=== PATIENT | female | born 1945 | race Caucasian/White ===

== ENCOUNTER → 2016-08-21 | Outpatient (CLI) | payer MEDICARE, OTHER ==
--- NOTE | 2016-08-21 14:13 | REPMRS ---
Patient History The patient states she had a clinical breast exam in 07/2016. Patient is postmenopausal, has history of cancer in the left breast at age 53, had previous chest radiation therapy at age 53, and had previous chemotherapy at age 53. Family history of breast cancer in maternal cousin at age 50 or over. Malignant excisional biopsy of the left breast, 1999. Chemotherapy, 1999. Radiation therapy of the left breast, 1999. Took hormonal contraceptives for 2 years. Took tamoxifen for 5 years. Digital Woman Screen Mammo: August 21, 2016 - Exam #: [id number] Bilateral CC and MLO view(s) were taken. Technologist: Lizz Awan, Technologist Prior study comparison: August 19, 2015, digital woman screen mammo performed at [facility]. August 17, 2014, digital woman screen mammo performed at [facility]. FINDINGS: There are scattered fibroglandular densities. There is no evidence of cancer on this mammogram. No significant changes when compared with prior studies. ASSESSMENT: BI-RADS/ACR category 2 mammogram. Benign finding(s). Recommendation Routine screening mammogram of both breasts in 1 year (for women over age 40). This mammogram was interpreted with the aid of an FDA-approved computer-aided dectection system. Electronically Signed By: Dean Swain MD 08/21/16 [id number]
== END ==
LOC: M WHC 13:17
PROVIDERS: ATTEND Nurse Practitioner Family
DX: Z12.31 Encounter for screening mammogram for malignant neoplasm of breast (principal); Z78.0 Asymptomatic menopausal state; Z85.3 Personal history of malignant neoplasm of breast; Z92.21 Personal history of antineoplastic chemotherapy; Z92.0 Personal history of contraception; Z92.3 Personal history of irradiation; Z80.3 Family history of malignant neoplasm of breast

== ENCOUNTER → 2018-08-23 | Outpatient (CLI) | payer MEDICARE, OTHER ==
[~2018-08-23] MED LIST: ALLO100T PO; ATOR40TA75 PO; CO Q200C10 PO; D-3-50003 PO; GEMF600T5 PO; LOSA100T5 PO; MAGN400C2 PO; PANT20TA2 PO
--- NOTE | 2018-08-23 11:02 | REPMRS ---
Patient History The patient states she had a clinical breast exam in 06/2018. Patient is postmenopausal, has history of cancer in the left breast at age 53, had previous chest radiation therapy at age 53, and had previous chemotherapy at age 53. Family history of breast cancer at age 50 or over in maternal cousin, breast cancer at age 50 in daughter. Malignant excisional biopsy of the left breast, 1999. Chemotherapy, 2000. Radiation therapy of the left breast, 1999. Took hormonal contraceptives for 2 years. Took tamoxifen for 5 years. Digital Woman Screen Mammo: August 23, 2018 - Exam #: [id number] Bilateral CC and MLO view(s) were taken. Technologist: Lizz Awan, Technologist Prior study comparison: August 22, 2017, digital woman screen mammo performed at [facility]. August 21, 2016, digital woman screen mammo performed at [facility]. August 19, 2015, digital woman screen mammo performed at [facility]. FINDINGS: There are scattered fibroglandular densities. There are stable post-treatment changes on the left. There are stable nodular opacities on the right which are felt to be benign. There has been no change in the appearance of the mammogram from the prior studies. There is a mild amount of scattered fibroglandular density which is fairly symmetric. There is no interval development of dominant mass, architectural distortion, or clustered microcalcification suggestive of malignancy. 3-D tomosynthesis shows no additional findings. Assessment: BI-RADS/ACR category 2 mammogram. Benign Findings. Recommendation Routine screening mammogram of both breasts in 1 year (for women over age 40). This mammogram was interpreted with the aid of an FDA-approved computer-aided dectection system. Electronically Signed By: Heath Bear MD 08/23/18 [id number]
== END ==
LOC: M WHC 09:06
PROVIDERS: ATTEND Nurse Practitioner Family
DX: Z12.31 Encounter for screening mammogram for malignant neoplasm of breast (principal)

== ENCOUNTER → 2019-11-20 | Outpatient (CLI) | payer MEDICARE, OTHER ==
[~2019-11-20] MED LIST changes: -PANT20TA2 PO; +PANT20TA6 PO
--- NOTE | 2019-11-20 17:06 | REPMRS ---
Patient History The patient states she had a clinical breast exam in July 2019.Family history of breast cancer at age 50 or over in maternal cousin, breast cancer at age 50 in daughter. Malignant excisional biopsy of the left breast, 1999. Chemotherapy, 1999. Radiation therapy of the left breast, 1999. Took hormonal contraceptives for 2 years. Took tamoxifen for 5 years. 3D TOMOSYNTHESIS WAS PERFORMED. VOLPARA DENSITY B. Digital Woman Screen Mammo: November 20, 2019 - Exam #: [id number] Bilateral CC and MLO view(s) were taken. Technologist: Magda Ramires, Technologist Prior study comparison: August 23, 2018, bilateral digital woman screen mammo performed at [facility]. August 22, 2017, digital woman screen mammo performed at [facility]. FINDINGS: There are scattered fibroglandular densities. There is a fairly symmetric fibroglandular pattern in both breasts. There has been no interval development of masses, areas of architectural distortion or clusters of microcalcifications typical of malignancy. Stable post surgical changes on the left. No significant changes when compared with prior studies. Assessment: BI-RADS/ACR category 2 mammogram. Benign Findings. Recommendation Routine screening mammogram of both breasts in 1 year (for women over age 40). This mammogram was interpreted with the aid of an FDA-approved computer-aided dectection system. Electronically Signed By: Dean Swain MD 11/20/19 [id number]
== END ==
LOC: M WHC 16:25
PROVIDERS: ATTEND Obstetrics & Gynecology
DX: Z12.31 Encounter for screening mammogram for malignant neoplasm of breast (principal); Z80.3 Family history of malignant neoplasm of breast; Z85.3 Personal history of malignant neoplasm of breast; Z92.21 Personal history of antineoplastic chemotherapy; Z92.3 Personal history of irradiation

== ENCOUNTER → 2020-11-22 | Outpatient (CLI) | payer MEDICARE, OTHER ==
--- NOTE | 2020-11-22 13:07 | REPMRS ---
Patient History The patient states she had a clinical breast exam in October 2020. Family history of breast cancer at age 50 or over in maternal cousin, breast cancer at age 50 in daughter. Malignant excisional biopsy of the left breast, 1999. Chemotherapy, 1999. Radiation therapy of the left breast, 1999. Took hormonal contraceptives for 2 years. Took tamoxifen for 5 years. Patient states no breast complaints today. Patient has signed MRS History Sheet. Digital Woman Screen Mammo: November 22, 2020 - Exam #: [id number] Bilateral CC and MLO view(s) were taken. Technologist: Brea Polanco, Technologist Prior study comparison: November 20, 2019, bilateral digital woman screen mammo performed at [facility]. August 23, 2018, bilateral digital woman screen mammo performed at [facility]. FINDINGS: There are scattered fibroglandular densities. Screening. This patient?s lifetime risk for the development of invasive breast cancer can?t be calculated due to her age (less than 20 or greater than 85 years) or a prior history of in situ or invasive breast cancer. Digital screening (2D) mammography was performed bilaterally. Additionally, breast tomosynthesis (3D mammography) was performed bilaterally in the CC and MLO projections. Today's exam was compared to the prior exam/exams. By history, the patient has no complaints of a palpable breast abnormality or other significant breast complaints. The patient is status post lumpectomy/chemo radiation therapy due to breast carcinoma. The breasts are unchanged in size and shape. There are no leticia-areas of internal architectural distortion. There are no leticia-soft tissue densities or areas of spiculation. There is unchanged post radiation skin thickening. Once again, stable benign appearing calcifications are seen. IMPRESSION: BI-RADS Category 2- Benign Findings. There is no evidence of malignant alteration of the breasts. Routine bilateral screening mammogram recommended at its regularly scheduled annual interval. The Volpara volumetric breast density category is B, there are scattered areas of fibroglandular densities. This mammogram was read with the assistance of [employer],an FDA approved computer aided detection system for mammography. Negative x-ray reports should not delay surgical consultation if a dominant or clinically suspicious mass is present. Not all breast cancers can be identified by mammography. Therefore, we recommend that you continue to perform regular breast self-examination and physical examination and then promptly contact your physician of any concerns or changes. Adenosis and dense breasts may obscure an underlying neoplasm. Assessment: BI-RADS/ACR category 2 mammogram. Benign Findings. Recommendation Routine screening mammogram of both breasts in 1 year. Electronically Signed By: Tu Duarte DO 11/22/20 [id number]
== END ==
LOC: M WHC 11:24
PROVIDERS: ATTEND Obstetrics & Gynecology
DX: Z12.31 Encounter for screening mammogram for malignant neoplasm of breast (principal)

== ENCOUNTER → 2021-11-29 | Outpatient (CLI) | payer MEDICARE, OTHER | LOC: M WHC 12:02 | PROVIDERS: ATTEND Obstetrics & Gynecology | DX: Z12.31 Encounter for screening mammogram for malignant neoplasm of breast (principal); Z85.3 Personal history of malignant neoplasm of breast ==

== ENCOUNTER 2022-08-11 14:45 | Inpatient (IN) | payer MEDICARE, OTHER ==
[~2022-08-11] VITALS: Ht 177.8 cm; Wt 87.3 kg
[2022-08-11 15:30] LABS: BASO # 0.1 10^3/uL (0.0-0.2); BASO % 0.3 % (0.0-1.0); EOS # 0.1 10^3/uL (0.0-0.5); EOS % 0.5 % (0.0-3.0); HEMATOCRIT 38.3 % (36.0-47.0); HEMOGLOBIN 12.7 g/dl (12.0-15.5); LYMPH # 1.9 10^3/uL (1.5-5.0); LYMPH % 12.7 % (24.0-44.0); MEAN CORPUSCULAR HEMOGLOBIN 29.1 pg (27.0-33.0); MEAN CORPUSCULAR HGB CONC 33.2 g/dl (32.0-36.5); MEAN CORPUSCULAR VOLUME 87.6 fl (80.0-96.0); MONO # 1.4 10^3/uL (0.0-0.8); MONO % 9.5 % (2.0-8.0); NEUTROPHILS # 11.1 10^3/uL (1.5-8.5); NEUTROPHILS % 76.1 % (36.0-66.0); PLATELET COUNT, AUTOMATED 132 10^3/uL (150-450); RED BLOOD COUNT 4.37 10^6/uL (4.00-5.40); WHITE BLOOD COUNT 14.6 10^3/uL (4.0-10.0)
[2022-08-11] MEDS ORDERED: ONDANSETRON 4MG 2ML VIAL IV ONE (15:50)
[2022-08-11] MEDS ORDERED: MORPHINE 2 MG/ML 1ML VIAL IV ONE (15:50)
[2022-08-11 16:34] LABS: INR 0.96; LIPASE 53 U/L (12-53)
[2022-08-11 16:35] LABS: PARTIAL THROMBOPLASTIN TIME 27.5 SECONDS (24.8-34.2)
[2022-08-11 16:40] LABS: ALKALINE PHOSPHATASE 615 U/L (46-116); ALT/SGPT 212 U/L (7.0-40); AST/SGOT 191 U/L (<34); BILIRUBIN,DIRECT 3.5 MG/DL (<0.4); BILIRUBIN,TOTAL 5.5 MG/DL (0.3-1.2); BLOOD UREA NITROGEN 32 MG/DL (9-23); CALCIUM LEVEL 9.2 MG/DL (8.3-10.6); CARBON DIOXIDE LEVEL 22 MMOL/L (20-31); CHLORIDE LEVEL 101 MMOL/L (98-107); CK-MB VALUE MASS < 1.0 NG/ML (<3.6); CREATININE FOR GFR 1.46 MG/DL (0.55-1.30); GLOMERULAR FILTRATION RATE 36.9 (>39); GLUCOSE, FASTING 132 MG/DL (74-106); POTASSIUM SERUM 4.1 MMOL/L (3.5-5.1); SODIUM LEVEL 135 MMOL/L (136-145); TOTAL PROTEIN 6.6 G/DL (5.7-8.2)
[2022-08-11 16:43] LABS: CPK CREATINE PHOSPHOKINASE 109 U/L (34-145); MB/CK RELATIVE INDEX 0.91 (< OR =4)
[2022-08-11] MEDS: MORPHINE 4 MG/ML 1ML VIAL IV PRN ×2 (17:48→21:34)
[2022-08-11] MEDS ORDERED: ACETAMINOPHEN TAB 650MG DOSE (2X325MG) PO ONE (19:00)
[2022-08-11] MEDS ORDERED: PIPERACILLIN/TAZOBACTAM SOD 4.5 GM in D5W MINI-BAG PLUS 50 ML IV ONE (19:00)
[2022-08-11] MEDS ORDERED: PIPERACILLIN/TAZOBACTAM SOD 3.375 GM in D5W MINI-BAG PLUS 50 ML IV ONE (22:10)
[2022-08-11] MEDS ORDERED: CHOL50002 PO (22:42)
[2022-08-11] MEDS ORDERED: LOPI600T PO (22:46)
[2022-08-11] MEDS ORDERED: LOSA100T8 PO (22:46)
[2022-08-11] MEDS ORDERED: PROBCAP14 PO (22:58)
[2022-08-11] MEDS ORDERED: HOME MED LIST COMPLETE! XX SCH (23:00)
[2022-08-11 23:04] LABS: RSV AMPLIFICATION NEGATIVE (NEGATIVE)
[2022-08-12] VITALS (12 sets, daily range): BP systolic 100–131; BP diastolic 53–80
[2022-08-12] MEDS ORDERED: MORPHINE 2 MG/ML 1ML VIAL IV PRN (00:20)
[2022-08-12] MEDS ORDERED: DEXTROSE 50% 50ML SYRINGE IV PRN (00:25)
[2022-08-12] MEDS ORDERED: GLUCOSE 4GM CHEW TABLET PO PRN (00:25)
[2022-08-12] MEDS ORDERED: GLUCAGON INJ 1MG VIAL SC PRN (00:25)
[2022-08-12] MEDS: NS 1,000 ML IV SCH ×2 (01:24→13:01)
[2022-08-12] MEDS: AMPICILLIN SOD/SULBACTAM SOD 3 GM in D5W MINI-BAG PLUS 100 ML IV SCH ×2 (01:25→06:08)
[2022-08-12] MEDS: HEPARIN SOD (PORCINE) 5000UNITS/ML 1ML VIAL/SYRINGE SC SCH ×3 (05:01→20:31)
[2022-08-12] MEDS: PANTOPRAZOLE 40MG VIAL IV SCH (09:10)
[2022-08-12] MEDS: allopurinoL 100 MG TAB PO SCH (09:10)
[2022-08-12] MEDS ORDERED: MIDAZOLAM INJ 2MG/2ML VIAL As Ordered ONE (09:55)
[2022-08-12] MEDS ORDERED: ROCURONIUM BROMIDE 50MG/5ML VIAL As Ordered ONE (09:55)
[2022-08-12] MEDS ORDERED: LIDOCAINE 2% 100MG/5ML SDV (FOR ANES.) As Ordered ONE (09:55)
[2022-08-12] MEDS ORDERED: propofoL 200 MG/20 ML VIAL As Ordered ONE (09:55)
[2022-08-12] MEDS ORDERED: fentaNYL 100 MCG/2 ML INJECTION As Ordered ONE (09:57)
[2022-08-12 10:04] LABS: BASO # 0.1 10^3/uL (0.0-0.2); BASO % 0.3 % (0.0-1.0); EOS % 0.2 % (0.0-3.0); HEMATOCRIT 34.6 % (36.0-47.0); HEMOGLOBIN 11.4 g/dl (12.0-15.5); LYMPH # 1.7 10^3/uL (1.5-5.0); LYMPH % 9.9 % (24.0-44.0); MEAN CORPUSCULAR HEMOGLOBIN 29.2 pg (27.0-33.0); MEAN CORPUSCULAR HGB CONC 32.9 g/dl (32.0-36.5); MEAN CORPUSCULAR VOLUME 88.5 fl (80.0-96.0); MONO % 9.4 % (2.0-8.0); NEUTROPHILS # 13.8 10^3/uL (1.5-8.5); NEUTROPHILS % 78.9 % (36.0-66.0); PLATELET COUNT, AUTOMATED 108 10^3/uL (150-450); RED BLOOD COUNT 3.91 10^6/uL (4.00-5.40); WHITE BLOOD COUNT 17.4 10^3/uL (4.0-10.0)
[2022-08-12 10:22] LABS: MONO # 1.6 10^3/uL (0.0-0.8)
[2022-08-12] MEDS ORDERED: ISOVUE-300 61% 100ML VIAL As Ordered ONE (10:37)
[2022-08-12] MEDS ORDERED: oxyCODONE 5MG TAB PO PRN (10:40)
[2022-08-12] MEDS ORDERED: ONDANSETRON 4MG 2ML VIAL IV PRN (10:40)
[2022-08-12] MEDS ORDERED: fentaNYL 100 MCG/2 ML INJECTION IV PRN (10:40)
[2022-08-12] MEDS ORDERED: MEPERIDINE 25 MG/ML 1ML VIAL IV PRN (10:40)
[2022-08-12 10:41] LABS: ALBUMIN 2.6 G/DL (3.2-5.2); BILIRUBIN,TOTAL 7.3 MG/DL (0.3-1.2); CALCIUM LEVEL 8.7 MG/DL (8.3-10.6); CREATININE FOR GFR 1.86 MG/DL (0.55-1.30); GLOMERULAR FILTRATION RATE 27.9 (>39); POTASSIUM SERUM 3.7 MMOL/L (3.5-5.1)
[2022-08-12] MEDS ORDERED: PHENYLEPHRINE 10MG/ML 1ML VIAL As Ordered ONE (11:33)
[2022-08-12] MEDS ORDERED: SUGAMMADEX SODIUM 500 MG/5 ML VIAL (BRIDION) As Ordered ONE (11:34)
[2022-08-12] MEDS ORDERED: ONDANSETRON 4MG 2ML VIAL As Ordered ONE (11:35)
[2022-08-12] MEDS ORDERED: KETOROLAC 60MG 2ML VIAL As Ordered ONE (11:35)
[2022-08-12] MEDS: PIPERACILLIN/TAZOBACTAM SOD 3.375 GM in D5W MINI-BAG PLUS 50 ML IV SCH ×2 (12:55→18:27)
[2022-08-12] MEDS ORDERED: ATORVASTATIN 20 MG TAB PO SCH (21:00)
[2022-08-13] MEDS: PIPERACILLIN/TAZOBACTAM SOD 3.375 GM in D5W MINI-BAG PLUS 50 ML IV SCH ×4 (00:31→18:11)
[2022-08-13 01:30] VITALS: BP 109/53
[2022-08-13] MEDS: HEPARIN SOD (PORCINE) 5000UNITS/ML 1ML VIAL/SYRINGE SC SCH ×3 (05:48→22:00)
[2022-08-13 06:00] VITALS: BP 127/66
[2022-08-13 06:24] LABS: BASO % 0.3 % (0.0-1.0); EOS % 0.2 % (0.0-3.0); HEMOGLOBIN 10.6 g/dl (12.0-15.5); LYMPH # 1.2 10^3/uL (1.5-5.0); LYMPH % 9.1 % (24.0-44.0); MEAN CORPUSCULAR HEMOGLOBIN 29.1 pg (27.0-33.0); MEAN CORPUSCULAR HGB CONC 32.1 g/dl (32.0-36.5); MEAN CORPUSCULAR VOLUME 90.7 fl (80.0-96.0); MONO # 0.8 10^3/uL (0.0-0.8); MONO % 6.1 % (2.0-8.0); NEUTROPHILS # 10.6 10^3/uL (1.5-8.5); NEUTROPHILS % 81.1 % (36.0-66.0); PLATELET COUNT, AUTOMATED 100 10^3/uL (150-450); RED BLOOD COUNT 3.64 10^6/uL (4.00-5.40); WHITE BLOOD COUNT 13.1 10^3/uL (4.0-10.0)
[2022-08-13 06:42] LABS: ALBUMIN 2.4 G/DL (3.2-5.2); BILIRUBIN,TOTAL 5.6 MG/DL (0.3-1.2); CALCIUM LEVEL 8.2 MG/DL (8.3-10.6); CREATININE FOR GFR 1.68 MG/DL (0.55-1.30); GLOMERULAR FILTRATION RATE 31.4 (>39); POTASSIUM SERUM 4.3 MMOL/L (3.5-5.1)
[2022-08-13] MEDS ORDERED: LR 1,000 ML IV ONE (08:20)
[2022-08-13] MEDS ORDERED: METR-265 PO (08:41)
[2022-08-13] MEDS ORDERED: CIPR250T3 PO (08:41)
[2022-08-13] MEDS ORDERED: AMLO25TA PO (08:41)
[2022-08-13] MEDS: allopurinoL 100 MG TAB PO SCH (09:16)
[2022-08-13] MEDS: PANTOPRAZOLE 40MG VIAL IV SCH (09:16)
[2022-08-13 09:30] VITALS: BP 129/68
[2022-08-13 11:37] LABS: ALBUMIN 2.3 G/DL (3.2-5.2); BILIRUBIN,DIRECT 4.7 MG/DL (<0.4); BILIRUBIN,TOTAL 6.9 MG/DL (0.3-1.2); TOTAL PROTEIN 5.9 G/DL (5.7-8.2)
[2022-08-13 14:00] VITALS: BP 129/67
[2022-08-13 22:00] VITALS: BP 129/71
[2022-08-14] MEDS: PIPERACILLIN/TAZOBACTAM SOD 3.375 GM in D5W MINI-BAG PLUS 50 ML IV SCH ×2 (00:31→05:41)
[2022-08-14] MEDS: HEPARIN SOD (PORCINE) 5000UNITS/ML 1ML VIAL/SYRINGE SC SCH (05:17)
[2022-08-14 05:48] VITALS: BP 133/71
[2022-08-14 06:02] LABS: HEMATOCRIT 31.5 % (36.0-47.0); HEMOGLOBIN 10.2 g/dl (12.0-15.5); MEAN CORPUSCULAR HEMOGLOBIN 28.8 pg (27.0-33.0); MEAN CORPUSCULAR HGB CONC 32.4 g/dl (32.0-36.5); PLATELET COUNT, AUTOMATED 133 10^3/uL (150-450); RED BLOOD COUNT 3.54 10^6/uL (4.00-5.40)
[2022-08-14 06:39] LABS: ALBUMIN 2.2 G/DL (3.2-5.2); BILIRUBIN,TOTAL 4.2 MG/DL (0.3-1.2); CALCIUM LEVEL 8.6 MG/DL (8.3-10.6); CREATININE FOR GFR 1.53 MG/DL (0.55-1.30); GLOMERULAR FILTRATION RATE 34.9 (>39); POTASSIUM SERUM 3.5 MMOL/L (3.5-5.1); TOTAL PROTEIN 5.5 G/DL (5.7-8.2)
[2022-08-14] MEDS ORDERED: FUROSEMIDE 20MG/2ML VIAL IV ONE (07:25)
[2022-08-14 07:28] LABS: LYMPHOCYTES 14 % (16-44); MONOCYTES 4 % (0-5); NEUTROPHILS 82 % (28-66)
[2022-08-14 07:29] LABS: PLATELET ESTIMATE DECREASED (NORMAL)
[2022-08-14 07:31] LABS: ANISOCYTOSIS 1+
[2022-08-14] MEDS ORDERED: CIPR250T3 PO (08:18)
[2022-08-14] MEDS ORDERED: METR-265 PO (08:18)
[2022-08-14] MEDS: PANTOPRAZOLE 40MG VIAL IV SCH (08:37)
[2022-08-14] MEDS: allopurinoL 100 MG TAB PO SCH (08:37)
== END 2022-08-14 10:37 | disposition home or self-care (01) | DRG 445 ==
LOC: M ED 14:45 → M ED INP 22:46 → M MSPAV 08-12 00:40
PROVIDERS: ADMIT Family Medicine; ATTEND Internal Medicine
PROC: 0F798ZZ Dilation of Common Bile Duct, Via Natural or Artificial Opening Endoscopic (ICD-10-PCS; principal; 2022-08-12 09:30)
DX: K80.50 Calculus of bile duct without cholangitis or cholecystitis without obstruction (principal); R17 Unspecified jaundice; N17.9 Acute kidney failure, unspecified; E78.5 Hyperlipidemia, unspecified; K44.9 Diaphragmatic hernia without obstruction or gangrene; K21.9 Gastro-esophageal reflux disease without esophagitis; M10.9 Gout, unspecified; E73.9 Lactose intolerance, unspecified; I10 Essential (primary) hypertension; Z90.49 Acquired absence of other specified parts of digestive tract; Z90.5 Acquired absence of kidney; Z79.899 Other long term (current) drug therapy; Z88.2 Allergy status to sulfonamides; Z88.8 Allergy status to other drugs, medicaments and biological substances

== ENCOUNTER → 2022-08-31 | Outpatient (REF) | payer MEDICARE, OTHER ==
[~2022-08-31] MED LIST changes: +AMLO25TA PO; +CHOL50002 PO; +CIPR250T3 PO; +LOPI600T PO; +LOSA100T8 PO; +METR-265 PO; +PROBCAP14 PO
[2022-08-31 15:33] LABS: ALBUMIN 3.2 G/DL (3.2-5.2); BILIRUBIN,DIRECT 0.7 MG/DL (<0.4); BILIRUBIN,TOTAL 1.1 MG/DL (0.3-1.2)
== END ==
LOC: M LABDRWAD 13:02
PROVIDERS: ATTEND Internal Medicine Gastroenterology
DX: R94.5 Abnormal results of liver function studies (principal)

== ENCOUNTER → 2023-01-08 | Outpatient (CLI) | payer MEDICARE, OTHER | LOC: M WHC 13:08 | PROVIDERS: ATTEND Obstetrics & Gynecology | DX: Z12.31 Encounter for screening mammogram for malignant neoplasm of breast (principal) ==

== ENCOUNTER → 2023-03-07 | Outpatient (CLI) | payer MEDICARE, OTHER ==
[~2023-03-07] MED LIST changes: +ISOVUE-370 76% 100ML VIAL As Ordered ONE
== END ==
LOC: M RAD 14:55
PROVIDERS: ATTEND Family Medicine
DX: C74.10 Malignant neoplasm of medulla of unspecified adrenal gland (principal)
CPT/HCPCS: 74170; Q9967

== ENCOUNTER → 2023-06-01 | Outpatient (CLI) | payer MEDICARE, OTHER ==
[~2023-06-01] MED LIST changes: -ISOVUE-370 76% 100ML VIAL As Ordered ONE
== END ==
LOC: M WUC 09:47
PROVIDERS: ATTEND Physician Assistant
DX: M18.12 Unilateral primary osteoarthritis of first carpometacarpal joint, left hand (principal)

== ENCOUNTER → 2024-01-18 | Outpatient (CLI) | payer MEDICARE, OTHER | LOC: M WHC 09:08 | PROVIDERS: ATTEND Obstetrics & Gynecology | DX: Z12.31 Encounter for screening mammogram for malignant neoplasm of breast (principal) ==

== ENCOUNTER → 2024-03-11 | Outpatient (CLI) | payer MEDICARE, OTHER | LOC: M WUC 09:17 | PROVIDERS: ATTEND Family Medicine | DX: M25.551 Pain in right hip (principal) ==

== ENCOUNTER → 2025-02-27 | Outpatient (REF) | payer MEDICARE, OTHER | LOC: M LAB REF 12:18 | PROVIDERS: ATTEND Family Medicine | DX: M10.9 Gout, unspecified (principal) ==